=== PATIENT | male | born 1935 | race Caucasian/White ===

== ENCOUNTER 2024-03-09 13:14 | Emergency (ER) | payer OTHER, MEDICARE ==
[~2024-03-09] VITALS: Ht 172.7 cm; Wt 85.3 kg
[2024-03-09 13:30] LABS: BASOPHILS 0.9 % (0-2); EOSINOPHILS 2.6 % (0-6); HEMATOCRIT 41.9 % (35.0-50.0); LYMPHOCYTES 15.1 % (24-44); MCH 31.3 (27-36); MCHC 33.5 g/dl (30-36); MCV 93.4 fl (81-99); NEUTROPHILS 74.4 % (39-80); PLATELET COUNT 210 K/uL (140-440); RBC 4.49 M/ul (4.3-5.7); RDW 13.3 (10.5-15.0)
[2024-03-09] MEDS ORDERED: LACTATED RINGER'S 1,000 ML IV ONE (13:30)
[2024-03-09 13:47] LABS: ALBUMIN 3.5 g/dL (3.4-5.0); ALCOHOL, MEDICAL <3 ng/dL (<3); ALKALINE PHOSPHATASE 89 U/L (46-116); ALT (SGPT) 27 U/L (14-59); ANION GAP 12.1 (7-21); AST (SGOT) 29 U/L (15-37); BILIRUBIN, TOTAL 0.7 ng/dL (0.2-1.0); CALCIUM 9.7 mg/dL (8.5-10.1); CARBON DIOXIDE 27 mmol/L (21-32); CHLORIDE 102 mmol/L (98-107); CREATINE KINASE 388 U/L (39-308); CREATININE, SERUM 1.94 mg/dL (0.70-1.30); GLOMERULAR FILTRATION RATE,EST 33 mL/min (>60); POTASSIUM 4.1 mmol/L (3.5-5.1); PROTEIN, TOTAL 7.4 g/dL (6.4-8.2); UREA NITROGEN 39 mg/dL (7-18)
[2024-03-09 14:05] LABS: ABO A; ANTIBODY SCREEN NEGATIVE; RH NEGATIVE
[2024-03-09] MEDS ORDERED: OXYCODONE/APAP 5/325 TAB PO ONE (16:00)
[2024-03-09] MEDS ORDERED: ONDANSETRON 4 MG HOME.PACK SL ONE (16:00)
[2024-03-09] MEDS ORDERED: OXYCODONE/ACETAMINOPHEN 1 TAB HOME.PACK PO ONE (16:00)
[2024-03-09] MEDS ORDERED: LIDODERM1 EACH TOP (16:13)
[2024-03-09] MEDS ORDERED: PERCOCET 5-3251 EACH PO (16:13)
[2024-03-09] MEDS ORDERED: ONDANSETRON ODT8 MG PO (16:13)
[2024-03-09 16:45] VITALS: BP 150/76
[2024-03-09 16:54] LABS: BILIRUBIN, URINE NEGATIVE (negative); BLOOD/HGB, URINE MODERATE (Negative); KETONE, URINE SMALL (Negative); LEUK ESTERASE, URINE NEGATIVE (negative); NITRITE, URINE NEGATIVE (negative); PH, URINE 5.5 (5-7)
[2024-03-09 17:01] LABS: CRYSTALS, URINE NONE SEEN (0-1+); EPITHELIAL CELLS, URINE SQUAMOUS 1+ /lpf (0-1+)
[2024-03-09 17:02] LABS: BACTERIA, URINE RARE /hpf (negative); CASTS, URINE GRANULAR 1+ \\lpf
[2024-03-09 17:03] LABS: COLLECTION TYPE, URINE CLEAN CATCH; REFLEX CULTURE, URINE No (No)
[2024-03-09 17:09] LABS: AMPHETAMINES, URINE NEGATIVE (NEGATIVE); BARBITURATES, URINE NEGATIVE (NEGATIVE); BENZODIAZEPINE, URINE NEGATIVE (NEGATIVE); BUPRENORPHINE, URINE NEGATIVE (NEGATIVE); CANNABINOID, URINE NEGATIVE (NEGATIVE); COCAINE, URINE NEGATIVE (NEGATIVE); ECSTASY, URINE NEGATIVE (NEGATIVE); FENTANYL, URINE NEGATIVE (NEGATIVE); METHADONE, URINE NEGATIVE (NEGATIVE); OPIATES, URINE NEGATIVE (NEGATIVE); OXYCODONE, URINE NEGATIVE (NEGATIVE); PHENCYCLIDINE, URINE NEGATIVE (NEGATIVE)
== END 2024-03-09 16:45 | disposition home or self-care (01) ==
LOC: ED 13:14
PROVIDERS: Emergency Medicine
DX: S22.42XA Multiple fractures of ribs, left side, initial encounter for closed fracture (principal); S42.112A Displaced fracture of body of scapula, left shoulder, initial encounter for closed fracture; V28.49XA Other motorcycle driver injured in noncollision transport accident in traffic accident, initial encounter; Z88.8 Allergy status to other drugs, medicaments and biological substances
CPT/HCPCS: 36415; 70450; 70486; 71045; 71260; 72125; 73030; 74177; 80053; 80307; 81001; 82553; 83605; 85025; 86850; 86900; 86901; 99284-25; A9270; G0480; J7121; Q9967